=== PATIENT | male | born 1980 | race Caucasian/White ===

== ENCOUNTER 2022-01-16 15:04 | Emergency (ER) | payer OTHER ==
[~2022-01-16] VITALS: Ht 167.6 cm; Wt 113.4 kg
--- NOTE | 2022-01-16 16:01 | NUR ---
at bedside to examine pt.
[2022-01-16] MEDS ORDERED: HYDROCODONE/APAP 10-325 MG TABLET PO ONE (16:15)
[2022-01-16] MEDS ORDERED: HYDROCODONE/APAP 5-325MG TABLET ONE (16:17)
[2022-01-16] MEDS ORDERED: HYDROCODONE/APAP 5-325MG TABLET PO ONE (16:30)
[2022-01-16] MEDS ORDERED: HYDR-4209 PO (17:04)
--- NOTE | 2022-01-16 17:17 | NUR ---
short posteriorsplint applied to left foot as ordered by . procedure done by Meryl Muhammad
--- NOTE | 2022-01-16 17:18 | NUR ---
Pt also educated on crutches used by rn. Muhammad.
--- NOTE | 2022-01-16 17:22 | NUR ---
pt. left room [id number]. using crutches accompanied by cousin.
== END 2022-01-16 17:22 | disposition home or self-care (01) ==
LOC: ER 15:10
DX: S92.012A Displaced fracture of body of left calcaneus, initial encounter for closed fracture (principal); W11.XXXA Fall on and from ladder, initial encounter; Y92.89 Other specified places as the place of occurrence of the external cause
CPT/HCPCS: 73610; 73630; A4663